=== PATIENT | male | born 1935 | race Caucasian/White ===

== ENCOUNTER → 2016-12-05 | Outpatient (CLI) | payer OTHER ==
[~2016-12-05] VITALS: Ht 175.3 cm; Wt 78.5 kg
[~2016-12-05] MED LIST: ACYCLOVIR 800800 MG PO; CARBIDOPA-LEVO1 EAC9 PO; CELEXA10 MG PO; COSOPT EYE DROPS5 ML OPHTHALMIC; DOXYCYCLINE 10100 MG PO; FLOMAX0.4 MG PO; LOTEMAX5 ML OPHTHALMIC; MULTIVITAMINS1 EAC7 PO; NEXIUM 40 MG CA40 M1 PO; TAMSULOSIN HCL0.4 M1 PO
--- NOTE | ~2016-12-05 | P ---
[facility] [place] [address] PROCEDURE REPORT Name: DALE CARVAJAL Room #: REG [facility]#: [id number] Admission: 12/05/16 Attend Phys: Laz Farfan MD Discharge: Date of : 36 Report #: [id number] THIS REPORT FOR: //name// CC: Scott Farfan DATE OF SERVICE: 12/05/2016 BRIEF HISTORY: The patient is an 81-year-old male who has a history of multiple colon adenomas, his lifetime count at this time is 16. PREOPERATIVE DIAGNOSIS: High risk screening colonoscopy due to history of multiple colon adenomas. POSTOPERATIVE DIAGNOSES: 1. Multiple colon polyps. 2. Diverticulosis coli. 3. Internal hemorrhoids. MEDICATIONS: Deep sedation with propofol per anesthesia. SPECIMEN: 1. Diminutive polyps times 2 at 50 cm. 2. Ascending colon polyp. 3. Hepatic flexure polyp. 4. Polyp at 60 cm. ESTIMATED BLOOD LOSS: 3 mL. PROCEDURE: Colonoscopy to cecum and terminal ileum with snare polypectomy and biopsy. FINDINGS: Prior to propofol sedation, procedure of colonoscopy was discussed with the patient as well as potential risks and its complications. He indicates he understands and desires to proceed. DESCRIPTION OF PROCEDURE: With the patient in left lateral decubitus position, digital examination was completed which revealed no abnormalities. Subsequently, the [employer] Now video colonoscope was introduced into the rectum, advanced under direct vision to the cecum. Done with minimal difficulty. The cecum was identified by the ileocecal valve and the appendiceal orifice. I was able to visualize the distal segment of the terminal ileum, which was inspected and noted to be unremarkable. At that point, the scope was slowly withdrawn and careful circumferential views obtained including retroflexing the scope in the ascending colon. As we withdrew the scope, the prep was noted to be good. [facility] [address] [place] [address] PROCEDURE REPORT Name: ALENADALE Elliott [id number] Admission: 12/05/16 Attend Phys: Laz Farfan MD Discharge: Date of : 36 Report #: [id number] mucosa was within normal limits, normal vascular pattern, normal light reflex. As we withdrew the scope, a diminutive polyp was seen in the proximal ascending colon and removed by biopsy. Scope was further withdrawn and another diminutive polyp was seen and removed by biopsy from the hepatic flexure. At 60 cm, a flat 8 x 8 mm polyp was seen and removed by cold snare polypectomy. At 50 cm, 2 diminutive polyps were seen and removed by biopsy. Scope was further withdrawn and a few diverticula were seen without evidence of diverticulitis. The scope was withdrawn in the rectum. Upon retroflexion, hemorrhoids were seen. No additional abnormalities were seen. Scope was withdrawn. The patient tolerated the procedure well. CONDITION OF THE PATIENT UPON DISCHARGE: Following procedure, the patient drowsy, aroused, conversant and will be discharged home when fully ambulatory. INSTRUCTIONS TO THE PATIENT AND FAMILY AT THE TIME OF DISCHARGE: The patient with history of 16 prior adenomas. Five polyps were identified and removed today. We will follow up on the path report, but due to his high number of polyps, would have him return in 2 years depending on his health status. 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 He will return to care of Dr. Scott Grimaldo and return to see me as needed. Last colonoscopy was about 2 years ago. Withdrawal time from the cecum was 16 minutes. <ELECTRONICALLY SIGNED> By: Laz Farfan MD 12/05/16 1100 1001 1036 Laz Farfan MD /nt
--- NOTE | ~2016-12-05 | S ---
[facility] [place] [facility] [place] [address] SURGICAL PATH RPT PROCEDURE Name: DALE CARVAJAL [id number] Admission: 12/05/16 Date of : 36 Discharge: Report #: [id number] Path Case #: [id number] PATHOLOGY REPORT COLLECTION DATE: 12/05/2016 RECEIVED DATE: 12/05/2016 SUBMITTING PHYS: Dr. Laz Farfan OTHER PHYS: Dr. Scott Grimaldo SPECIMEN(S) RECEIVED: A.Polyp at 50 cm B.Ascending colon polyp C.Hepatic flexure polyp D.Polyp at cecum * * * * * * * * * * * * FINAL DIAGNOSIS: A. Polyp, at 50 cm, endoscopic biopsy: - Tubular adenoma. - Negative for high-grade dysplasia. B. Polyp, ascending colon polyp, endoscopic biopsy: - Tubular adenoma. - Negative for high-grade dysplasia. C. Polyp, hepatic flexure, endoscopic biopsy: - Tubular adenoma. - Negative for high-grade dysplasia. D. Polyp, at 60 cm, endoscopic biopsy: - Tubular adenoma. - Negative for high-grade dysplasia. (IUV:mgr; 12/06/2016) PATHOLOGIST: Janine Rangel M.D. REPORT ELECTRONICALLY SIGNED BY: Janine Rangel M.D. DATE/TIME: 12/06/2016 18:47 * * * * * * * * * * * * GROSS PATHOLOGY: A. Received in formalin labeled "Dale Carvajal, polyp at 50 cm," are two segments of jones soft tissue measuring 0.6 x 0.4 x 0.3 cm in aggregate dimensions and ranging from 0.3 to 0.4 cm in maximum dimension. The specimen is submitted entirely in cassette A1. B. Received in formalin labeled "Dale Carvajal, ascending colon polyp," is a segment of jones soft tissue measuring 0.6 cm in maximum dimension. The specimen is submitted entirely in cassette B1. C. Received in formalin labeled "Dale Carvajal, hepatic flexure polyp," is a segment of jones soft tissue measuring 0.5 cm in maximum [facility] [place] [place] [address] SURGICAL PATH RPT PROCEDURE Name: DALE CARVAJAL Room #: REG [facility].#: [id number] Admission: 12/05/16 Date of : 36 Discharge: Report #: [id number] Path Case #: [id number] dimension. The specimen is submitted entirely in cassette C1. D. Received in formalin labeled "Dale Carvajal, polyp at 60 cm," is a segment of jones soft tissue measuring 0.9 cm in maximum dimension. The specimen is submitted entirely in cassette D1. (TSD; 12/05/2016) CLINICAL HISTORY: Pre-Op, diagnosis: History of polyps Post OP diagnosis: Diverticulosis, polyps INITIAL CPT CODE(S): A; 32105 B; 86713 C; 76940 D; 32615 Professional services performed by [facility] at [address] [place] [address] Technical services performed by [facility] at [address] [place] [address], [address], [place] [address]. [facility] [address] [place] [address] PHONE: [phone] DIRECTOR: Devin Fernandes M.D. * * * END OF REPORT * * *
== END | disposition home or self-care (01) ==
LOC: GI 07:23
DX: Z09 Encounter for follow-up examination after completed treatment for conditions other than malignant neoplasm (principal); D12.2 Benign neoplasm of ascending colon; D12.3 Benign neoplasm of transverse colon; D12.4 Benign neoplasm of descending colon; D12.5 Benign neoplasm of sigmoid colon; K57.30 Diverticulosis of large intestine without perforation or abscess without bleeding; K64.8 Other hemorrhoids; G20 Parkinson's disease; F32.89 Other specified depressive episodes; F41.8 Other specified anxiety disorders; Z87.891 Personal history of nicotine dependence; Z85.828 Personal history of other malignant neoplasm of skin; Z98.41 Cataract extraction status, right eye; Z98.42 Cataract extraction status, left eye; Z98.890 Other specified postprocedural states; Z88.2 Allergy status to sulfonamides
CPT/HCPCS: 62110; 62900

== ENCOUNTER 2016-12-22 11:41 | Emergency (ER) | payer OTHER ==
[~2016-12-22] VITALS: Ht 175.3 cm; Wt 79.4 kg
[2016-12-22] MEDS ORDERED: FLEXERIL PO (11:58)
[2016-12-22] MEDS ORDERED: IBUPROFEN 600600 M1 PO (12:22)
[2016-12-22] MEDS ORDERED: PREDNISONE 20 M20 MG PO (12:22)
[2016-12-22 12:40] VITALS: BP 163/94
[2016-12-23] MEDS ORDERED: NORCO 5-325 TA1 EACH PO (10:18)
== END 2016-12-22 12:52 | disposition home or self-care (01) ==
LOC: ER 11:41
DX: M54.42 Lumbago with sciatica, left side (principal); F32.9 Major depressive disorder, single episode, unspecified; G20 Parkinson's disease; Z90.49 Acquired absence of other specified parts of digestive tract; Z98.890 Other specified postprocedural states; Z87.891 Personal history of nicotine dependence; Z88.2 Allergy status to sulfonamides

== ENCOUNTER 2016-12-23 08:08 | Emergency (ER) | payer OTHER ==
[~2016-12-23] VITALS: Ht 175.3 cm; Wt 79.4 kg
[~2016-12-23 08:08] MED LIST changes: +FLEXERIL PO; +IBUPROFEN 600600 M1 PO; +PREDNISONE 20 M20 MG PO
[2016-12-23] MEDS ORDERED: NORCO 5-325 TA1 EACH PO (10:18)
[2016-12-23 10:47] VITALS: BP 182/72
== END 2016-12-23 10:46 | disposition home or self-care (01) ==
LOC: ER 08:08
DX: M54.32 Sciatica, left side (principal); G20 Parkinson's disease; F32.9 Major depressive disorder, single episode, unspecified; Z90.89 Acquired absence of other organs; Z98.890 Other specified postprocedural states; Z90.49 Acquired absence of other specified parts of digestive tract; Z85.828 Personal history of other malignant neoplasm of skin; Z88.2 Allergy status to sulfonamides; Z87.891 Personal history of nicotine dependence

== ENCOUNTER 2016-12-28 12:15 | Emergency (ER) | payer OTHER ==
[~2016-12-28] VITALS: Ht 175.3 cm; Wt 79.4 kg
[~2016-12-28 12:15] MED LIST changes: +NORCO 5-325 TA1 EACH PO
[2016-12-28] MEDS ORDERED: SENOKOT-S1 TA1 PO (13:45)
[2016-12-28] MEDS ORDERED: IBUPROFEN 600600 M1 PO (13:45)
[2016-12-28] MEDS ORDERED: HYDROCODONE-AP1 EAC6 PO (13:45)
[2016-12-28 14:07] VITALS: BP 152/71
== END 2016-12-28 14:09 | disposition home or self-care (01) ==
LOC: ER 12:15
DX: M54.32 Sciatica, left side (principal); F32.9 Major depressive disorder, single episode, unspecified; Z88.2 Allergy status to sulfonamides; Z87.891 Personal history of nicotine dependence

== ENCOUNTER 2017-01-13 21:10 | Emergency (ER) | payer OTHER ==
[~2017-01-13] VITALS: Ht 175.3 cm; Wt 79.4 kg
[~2017-01-13 21:10] MED LIST changes: +HYDROCODONE-AP1 EAC6 PO; +SENOKOT-S1 TA1 PO
[2017-01-13] MEDS ORDERED: PREDNISONE 20 M20 MG PO (22:01)
[2017-01-13 22:19] VITALS: BP 190/70
[2017-01-17] MEDS ORDERED: VALIUM5 MG PO (07:37)
[2017-01-17] MEDS ORDERED: MOBIC15 MG PO (07:37)
== END 2017-01-13 22:21 | disposition home or self-care (01) ==
LOC: ER 21:10
DX: K59.00 Constipation, unspecified (principal); M54.16 Radiculopathy, lumbar region; M54.41 Lumbago with sciatica, right side; F32.9 Major depressive disorder, single episode, unspecified; G20 Parkinson's disease; Z90.89 Acquired absence of other organs; Z90.49 Acquired absence of other specified parts of digestive tract; Z85.828 Personal history of other malignant neoplasm of skin; Z88.2 Allergy status to sulfonamides; Z87.891 Personal history of nicotine dependence

== ENCOUNTER → 2017-02-21 | Outpatient (CLI) | payer OTHER ==
[~2017-02-21] MED LIST changes: +MOBIC15 MG PO; +PREDNISONE 10 M10 MG PO; +VALIUM5 MG PO
== END ==
LOC: MRI 07:01
DX: M51.9 Unspecified thoracic, thoracolumbar and lumbosacral intervertebral disc disorder (principal); M47.817 Spondylosis without myelopathy or radiculopathy, lumbosacral region; R26.9 Unspecified abnormalities of gait and mobility; M62.81 Muscle weakness (generalized); M79.605 Pain in left leg; M25.552 Pain in left hip

== ENCOUNTER 2017-03-11 09:50 | Inpatient (IN) | payer OTHER ==
[2017-03-11] VITALS (7 sets, daily range): BP systolic 113–163; BP diastolic 64–93
[~2017-03-11] VITALS: Ht 175.3 cm; Wt 88.3 kg
--- NOTE | ~2017-03-11 | EKG ---
[address] [place] [address] ELECTROCARDIOGRAM REPORT Name: MAEVELUISDALE Room #: 359-P ADM IN M.R.#: [id number] Admission: 03/11/17 Attend Phys: Venkat Zhao DO Discharge: Date of : 36 Report #: [id number] THIS REPORT FOR: //name// [facility] ED Test Date: 2017-03-11 Test Time: 09:59:26 Pat Name: DALE CARVAJAL Department: Room: 359 Gender: M Inclusion Internship: [id number] : 1935 Requested By: Joseph Reed Order Number: [id number] MD: Luiz Johnson Measurements Intervals [place] Rate: 144 P: -51 [place]: 73 QRS: 21 QRSD: 102 T: -5 QT: 314 QTc: 486 Interpretive Statements Atrial flutter Borderline T abnormalities, inferior leads Compared to ECG 07/05/2015 07:27:22 T-wave abnormality now present Sinus bradycardia no longer present Atrial premature complex(es) no longer present Electronically Signed On 03-11-2017 22:37:28 BURGLAR ALARM OPERATOR by Luiz Johnson [email or web address] <ELECTRONICALLY SIGNED> By: Luiz Johnson MD 03/11/17 [phone] 0959 Luiz Johnson MD /EPI
--- NOTE | ~2017-03-11 | 2DMMODE ---
[facility] [address] [place] [address] 2 D/M-MODE ECHOCARDIOGRAM Name: ALENADALE AMALIA Room #: 359-P ADM IN M.R.#: [id number] Admission: 03/11/17 Attend Phys: Venkat Zhao, Discharge: Date of : 36 Date of Service: 03/11/17 1550 Report #: [id number] THIS REPORT FOR: //name// APPROVED REPORT Study performed: 03/11/2017 14:58:07 EXAM: Comprehensive 2D, Doppler, and color-flow Echocardiogram Patient Location: Bedside Room #: 359 Status: routine BSA: 2.04 HR: 72 bpm BP: 152/88 mmHg Other Information Study Quality: Good Indications Hx: Atrial Flutter 2D Dimensions RVDd: 30.85 mm LVEF(%): 56.38 (>50%) IVSd: 9.76 (7-11mm) LVOT Diam: 21.18 (18-24mm) LVDd: 55.23 mm PWd: 10.14 (7-11mm) Ascending Ao: 32.79 (22-36mm) LVDs: 38.75 (25-40mm) Aortic Root: 32.24 mm IVC: 31.00 mm Winn's LVEF: 56.38 % Volumes Left Atrial Volume (Systole) Single Plane 4CH: 81.94 mL Single Plane 2CH: 65.13 mL LA ESV Index: 37.00 mL/m2 Aortic Valve AoV Peak Max.: 0.94 m/s AO Peak Gr.: 3.84 mmHg LVOT Max P.05 mmHg LVOT Max V: 0.72 m/s ADRIÁN Vmax: 2.67 cm2 Mitral Valve E/A Ratio: 4.8 MV Decel. Time: 186.95 ms MV E Max Max.: 0.92 m/s [facility] [place] [address] 2 D/M-MODE ECHOCARDIOGRAM Name: DALE CARVAJAL Room #: 359-P [facility] IN .R.#: [id number] Admission: 03/11/17 Attend Phys: Venkat Zhao, Discharge: Date of : 36 Date of Service: 03/11/17 1550 Report #: [id number] MV A Max.: 0.19 m/s MV PHT: 54.22 ms IVRT: 59.98 ms Pulmonary Valve PV Peak Max.: 0.80 m/s PV Peak Gr.: 2.56 mmHg Pulmonary Vein P Vein S: 0.45 m/s P Vein A: 0.12 m/s P Vein D: 0.54 m/s P Vein A Dur.: 83.0 msec P Vein S/D Ratio: 0.83 Tricuspid Valve TR Peak Max.: 3.12 m/s RAP Estimate: 15.00 mmHg TR Peak Gr.: 39.00 mmHg PA Pressure: 54.00 mmHg Left Ventricle The left ventricle is normal size. There is normal left ventricular wall thickness. Left ventricular systolic function is mild-moderately decreased. LVEF 40-45%. The diastolic function is abnormal. Findings suggest the left atrial pressure is elevated. Right Ventricle The right ventricle is normal size. The right ventricular systolic function is normal. Atria Left atrium is dilated. Right atrium is dilated. Aortic Valve The aortic valve is mildly sclerotic No aortic regurgitation is present. There is no aortic valvular stenosis. Mitral Valve Mild mitral annular calcification. Moderate mitral regurgitation. No evidence of mitral valve stenosis. Tricuspid Valve The tricuspid valve is normal in structure. Moderate tricuspid regurgitation. Estimated PAP 50 mmHg. Pulmonic Valve The pulmonary valve is normal in structure. Trace pulmonic regurgitation. [facility] [place] [address] 2 D/M-MODE ECHOCARDIOGRAM Name: DALE CARVAJAL Room #: 359-P [facility] IN .R.#: [id number] Admission: 03/11/17 Attend Phys: Venkat Zhao, Discharge: Date of : 36 Date of Service: 03/11/17 1550 Report #: [id number] Great Vessels The aortic root is normal in size. IVC is dilated and collapses <50% with inspiration. Pericardium There is no pericardial effusion. <Conclusion> Left ventricular systolic function is mild-moderately decreased. LVEF 40-45%. Left atrium is dilated. The aortic valve is mildly sclerotic. No aortic valvular stenosis or insufficiency. Mild mitral annular calcification. Moderate mitral regurgitation. Pulmonary artery pressure of 50mmHg There is no pericardial effusion. <ELECTRONICALLY SIGNED> By: Stiven Chavis MD, FACC 03/11/17 1550 155 155 Stiven Chavis MD, FACC /INF
[~2017-03-11 09:50] MED LIST changes: +IBUPROFEN 800800 M1 PO
[2017-03-11] MEDS ORDERED: SENNA8.6 MG PO (10:23)
[2017-03-11 10:34] LABS: HEMATOCRIT 37.9 % (42.0-52.0); HEMOGLOBIN 12.5 gm/dL (14.0-18.0); MCH 30.4 pg (26.0-34.0); MCV 91.9 fL (80.0-100.0); RBC 4.13 mil/uL (4.50-6.00); RDW 15.2 % (10.5-14.5); WBC 4.9 thou/uL (4.0-11.0)
[2017-03-11 10:39] LABS: ANION GAP 5 mmol/L (7-16); BUN 21 mg/dL (7-18); CALCIUM 8.9 mg/dL (8.5-10.1); CHLORIDE 103 mmol/L (98-107); CO2 30 mmol/L (21-32); CREATININE 0.9 mg/dL (0.7-1.3); GLUCOSE 83 mg/dL (74-106); POTASSIUM 4.3 mmol/L (3.5-5.1); SODIUM 138 mmol/L (136-145)
[2017-03-11 10:47] LABS: MAGNESIUM 2.1 mg/dL (1.8-2.4); TROPONIN-I < 0.04 ng/mL (<0.06)
[2017-03-12 00:16] VITALS: BP 131/59
[2017-03-12 03:14] LABS: CALCIUM 8.4 mg/dL (8.5-10.1); CREATININE 0.8 mg/dL (0.7-1.3); POTASSIUM 3.7 mmol/L (3.5-5.1)
[2017-03-12 04:50] VITALS: BP 107/52
[2017-03-12 07:56] VITALS: BP 109/53
[2017-03-12] MEDS ORDERED: ELIQUIS5 MG PO (10:58)
[2017-03-12] MEDS ORDERED: CARDIZEM CD240 MG PO (10:58)
[2017-03-12] MEDS ORDERED: LASIX 40 MG TAB40 M2 PO (10:58)
[2017-03-12] MEDS ORDERED: POTASSIUM20 PO (10:59)
[2017-03-12 11:25] VITALS: BP 119/67
[2017-03-12] MEDS ORDERED: SINEMET 25-2501 EAC1 PO (16:26)
[2017-03-12] MEDS ORDERED: VALIUM5 MG PO (16:31)
[2017-03-12] MEDS ORDERED: MOBIC15 MG PO (16:31)
[2017-03-12] MEDS ORDERED: COSOPT OCUMETER10 ML OPHTHALMIC (16:33)
[2017-03-12] MEDS ORDERED: ALPHAGAN P5 ML OPHTHALMIC (16:34)
[2017-03-12 17:03] VITALS: BP 108/67
[2017-03-12 19:25] VITALS: BP 123/68
[2017-03-13 03:47] VITALS: BP 111/58
[2017-03-13 05:46] LABS: HEMATOCRIT 34.7 % (42.0-52.0); HEMOGLOBIN 11.6 gm/dL (14.0-18.0); MCH 30.7 pg (26.0-34.0); MCHC 33.5 g/dL (28.0-37.0); MCV 91.7 fL (80.0-100.0); RBC 3.79 mil/uL (4.50-6.00); RDW 15.3 % (10.5-14.5); WBC 3.8 thou/uL (4.0-11.0)
[2017-03-13 05:53] LABS: CALCIUM 8.8 mg/dL (8.5-10.1); CREATININE 0.9 mg/dL (0.7-1.3); POTASSIUM 3.9 mmol/L (3.5-5.1)
[2017-03-13 07:53] VITALS: BP 129/68
[2017-03-13] MEDS ORDERED: TORSEMIDE20 MG PO (11:08)
[2017-03-13 11:22] VITALS: BP 109/65
[2017-03-13 11:49] VITALS: BP 109/65
== END 2017-03-13 14:10 | disposition home or self-care (01) | DRG 308 ==
LOC: ER 09:50 → EROBS 11:06 → 3W 11:06 → ENTRNSPT 03-13 14:01 → EDTRNSPTSTS 03-13 14:06 → 3W 03-13 14:10
PROVIDERS: Emergency Medicine; Internal Medicine; Nurse Practitioner Family
DX: I48.92 Unspecified atrial flutter (principal); I50.23 Acute on chronic systolic (congestive) heart failure; G20 Parkinson's disease; M54.32 Sciatica, left side; R33.9 Retention of urine, unspecified; D64.9 Anemia, unspecified; N40.0 Benign prostatic hyperplasia without lower urinary tract symptoms; Z79.899 Other long term (current) drug therapy; Z88.2 Allergy status to sulfonamides; Z87.891 Personal history of nicotine dependence
CPT/HCPCS: 10779

== ENCOUNTER 2018-01-17 17:43 | Emergency (ER) | payer OTHER ==
[~2018-01-17] VITALS: Ht 175.3 cm; Wt 77.1 kg
--- NOTE | ~2018-01-17 | EKG ---
[address] [address] ELECTROCARDIOGRAM REPORT Name: MAEVELUISDALE Room #: DEP Keith#: [id number] Admission: 01/17/18 Attend Phys: Discharge: 01/17/18 Date of : 36 Report #: [id number] THIS REPORT FOR: //name// [facility] ED Test Date: 2018-01-17 Test Time: 18:28:21 Pat Name: DALE CARVAJAL Department: Room: Gender: Employment Coach: CATA : 1935 Requested By: Joseph Reed Order Number: [id number] MD: Luiz Johnson Measurements Intervals [place] Rate: 91 P: [place]: QRS: 59 QRSD: 107 T: -3 QT: 418 QTc: 515 Interpretive Statements Atrial flutter Compared to ECG 03/11/2017 09:59:26 T-wave abnormality no longer present Electronically Signed On 01-19-2018 17:30:54 CDT by Luiz Johnson [email or web address] <ELECTRONICALLY SIGNED> By: Luiz Johnson MD 01/19/18 1730 D: 09/1827 27 Luiz Johnson MD /TANIA
[~2018-01-17 17:43] MED LIST changes: +ALPHAGAN P5 ML OPHTHALMIC; +CARDIZEM CD240 MG PO; +COSOPT OCUMETER10 ML OPHTHALMIC; +ELIQUIS5 MG PO; +LASIX 40 MG TAB40 M2 PO; +POTASSIUM20 PO; +SENNA8.6 MG PO; +SINEMET 25-2501 EAC1 PO; +TORSEMIDE20 MG PO
[2018-01-17 18:28] LABS: ABSOLUTE NEUTROPHILS 7.5 thou/uL (1.4-8.2); BASOPHILS 0.2 % (0.0-2.0); EOSINOPHILS 0.7 % (0.0-3.0); HEMATOCRIT 37.8 % (42.0-52.0); HEMOGLOBIN 13.3 gm/dL (14.0-18.0); MCH 31.6 pg (26.0-34.0); MCHC 35.1 g/dL (28.0-37.0); MCV 89.8 fL (80.0-100.0); MONOCYTES 4.8 % (1.0-8.0); PLATELET COUNT 132 thou/uL (150-400); POLYS 89.3 % (36.0-66.0); RBC 4.21 mil/uL (4.50-6.00); RDW 14.2 % (10.5-14.5); WBC 8.4 thou/uL (4.0-11.0)
[2018-01-17 18:40] LABS: ANION GAP 8 mmol/L (7-16); BUN 24 mg/dL (7-18); CALCIUM 9.1 mg/dL (8.5-10.1); CHLORIDE 102 mmol/L (98-107); CO2 27 mmol/L (21-32); CREATININE 1.1 mg/dL (0.7-1.3); GLUCOSE 132 mg/dL (74-106); POTASSIUM 4.1 mmol/L (3.5-5.1); SODIUM 137 mmol/L (136-145)
[2018-01-17 18:48] LABS: ALBUMIN 3.7 g/dL (3.4-5.0); MAGNESIUM 2.1 mg/dL (1.8-2.4); SGOT 15 U/L (15-37); SGPT 12 U/L (30-65); TOTAL BILIRUBIN 0.7 mg/dL (<0.1-1.0); TOTAL PROTEIN 6.6 g/dL (6.4-8.2); TROPONIN-I <0.06 ng/mL (<0.06)
[2018-01-17 19:48] LABS: URINE BILIRUBIN NEGATIVE (Negative); URINE BLOOD NEGATIVE (Negative); URINE CLARITY CLEAR; URINE COLOR YELLOW; URINE GLUCOSE-RANDOM* NEGATIVE (Negative); URINE KETONES TRACE (Negative); URINE LEUKOCYTES-REFLEX NEGATIVE (Negative); URINE NITRITE-REFLEX NEGATIVE (Negative); URINE PROTEIN (DIPSTICK) TRACE (Negative)
[2018-01-17 20:31] VITALS: BP 104/65
== END 2018-01-17 20:33 | disposition home or self-care (01) ==
LOC: ER 17:43
PROVIDERS: Emergency Medicine
DX: R25.1 Tremor, unspecified (principal); G20 Parkinson's disease; Z88.2 Allergy status to sulfonamides

== ENCOUNTER 2018-06-12 05:16 | Day surgery (SDC) | payer OTHER ==
[~2018-06-12] VITALS: Ht 175.3 cm; Wt 76.2 kg
[~2018-06-12 05:16] MED LIST changes: +BRIMONIDINE TART5 ML OPHTHALMIC; +COSOPT OCUMETER10 M1 OPHTHALMIC; +PREDNISOLONE SO10 ML OPHTHALMIC; +SELEGILINE HCL5 M1 PO
[2018-06-12 08:37] VITALS: BP 153/59
[2018-06-12 08:53] LABS: CALCIUM 9.5 mg/dL (8.5-10.1); CREATININE 0.8 mg/dL (0.7-1.3); POTASSIUM 4.4 mmol/L (3.5-5.1)
[2018-06-12 10:34] VITALS: BP 153/59
--- NOTE | 2018-06-12 12:18 | H ---
[facility] [place] [address] HISTORY AND PHYSICAL Name: DALE CARVAJAL Room #: DEP [facility] M.R.#: [id number] Admission: 06/12/18 Attend Phys: Rodrigo Schwartz MD Discharge: 06/12/18 Date of : 36 Report #: [id number] THIS REPORT FOR: //name// CC: Scott Schwartz CHIEF COMPLAINT: Persistent left anterior vocal cord lesion. HISTORY OF PRESENT ILLNESS: The patient is an 83-year-old gentleman with a longstanding history of known vocal cord polyp. 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 The patient underwent removal of those lesions in 2013 and postoperative voice therapy. He returned in June 2015 and was noted at that time to have a small left anterior vocal fold cyst and then recommended at that time to consider removal. He had returned in April 2018, findings noted on the examination at that time included a raspy voice, thick mucus in the throat and again on examination, we did visualize a cyst in the left anterior true vocal cords, remainder of the area appearing unremarkable. Upon wishes to have this removed at this time, I discussed the options for treatment including surgical removal that he understands this may not be sufficient to correct all of his voicing concerns. He also had cardiology clearance from Dr. Chavis prior to the procedure. The plan will be for micro direct laryngoscopy with biopsy. ALLERGIES TO MEDICATION: SULFA. MEDICATIONS ON ADMISSION: This is a fairly extensive list, acyclovir 800 mg once a day, Azopt eyedrops, carbidopa/levodopa 100 mg daily, Cartia XT 240 extended release daily, Eliquis 5 mg a day, potassium chloride extended release 20 mEq a day, selegiline 5 mg capsule once a day, torsemide 20 mg once a day. PAST MEDICAL AND SURGICAL HISTORY: Notable for gastroesophageal reflux disease, glaucoma, hearing loss, hypertension, cardiovascular disease. FAMILY HISTORY: Not notable for any particular problems. REVIEW OF SYSTEMS: He has noted he is a previous tobacco abuser. PHYSICAL EXAMINATION: VITAL SIGNS: Height of 5 feet 9 inches, weight 180 pounds. HEENT: As outlined above. Oral cavity and pharynx otherwise unremarkable. NECK: Normal to palpation. Larynx is as noted above. ASSESSMENT: History of left laryngeal lesion. [address] [address] HISTORY AND PHYSICAL Name: DALE CARVAJAL Room #: DEP [facility].#: [id number] Admission: 06/12/18 Attend Phys: Rodrigo Schwartz MD Discharge: 06/12/18 Date of : 36 Report #: [id number] Plan will be for micro direct laryngoscopy. <ELECTRONICALLY SIGNED> By: Rodrigo Schwartz MD 06/12/18 1218 0854 0928 Rodrigo Schwartz MD /sundeep
--- NOTE | 2018-06-12 12:18 | O ---
[facility] [place] [address] OPERATIVE REPORT Name: DALE CARVAJAL Room #: DEP [facility] M.R.#: [id number] Admission: 06/12/18 Attend Phys: Rodrigo Schwartz MD Discharge: 06/12/18 Date of : 36 Report #: [id number] THIS REPORT FOR: //name// CC: Scott Schwartz DATE OF SERVICE: 06/12/2018 PREOPERATIVE DIAGNOSIS: Left vocal cord lesion. POSTOPERATIVE DIAGNOSIS: Left anterior vocal cord cyst, contact irritation right true vocal cord. ANESTHESIA: General endotracheal. INDICATIONS: See H and P. FINDINGS: Firm cystic lesion was located on the medial ventral surface of the anterior left vocal cord near the commissure. There was contact inflammation and leukoplakia on the right anterior vocal cord, however, this was easily suctioned away and was not mucosal or submucosal in nature. TECHNIQUE: After obtaining consent, he was brought to the operating suite, appropriate time out was performed. General oral endotracheal anesthesia was obtained, the bed was turned 90 degrees, placed in a slight sniffing position with a small shoulder roll. Palpation of the neck was unremarkable. A mouth guard was placed over the upper dentition and left in place during the case. At the end of the case, the mouth guard was removed. Dentition was intact. The Dedo-laryngoscope was advanced into the oral cavity to the oropharynx into the hypopharynx. Base of tongue appeared unremarkable. The epiglottis and vallecula appeared unremarkable. The scope was advanced along the endotracheal tube to the anterior glottis where a suspension device was applied after adequate visualization of the false and true cords was obtained. He has a very anterior larynx, so visualization was somewhat technically more demanding. After putting in suspension, the operating scope was brought into the field and used for the majority of the case. Pre-biopsy photos were obtained. The cyst was very firm, required grasping with forceps to medialize. Using right curved scissors, a mucosal cut was made on the attachment to the vocal cord ligament and excised in a posterior to anterior direction and removed in toto. The anterior aspect of this was nearly against the commissure. Upon removal, hemostasis was obtained with the use of 0.5 x 0.5 cottonoid with adrenaline, left on for a couple of minutes. Upon removal, there was no active bleeding in that area noted. There was no vocal cord swelling noted. This reduced the tightness in the commissure back to normal. I then was able to suction off the excretion over the right vocal cord, which was noninvasive in nature and that [address] [address] OPERATIVE REPORT Name: DALE CARVAJAL Room #: DEP [facility] M.R.#: [id number] Admission: 06/12/18 Attend Phys: Rodrigo Schwartz MD Discharge: 06/12/18 Date of : 36 Report #: [id number] representing contact irritation from the previous cyst. Post-biopsy photos were obtained. He was then turned back over to Anesthesia where he was lightened and extubated and taken to recovery room in stable condition. Estimated blood loss was minimal. <ELECTRONICALLY SIGNED> By: Rodrigo Schwartz MD 06/12/18 1218 1023 1118 Rodrigo Schwartz MD /nt
--- NOTE | 2018-06-16 09:11 | PATH ---
[facility] [address] [place] [address] PATHOLOGY RPT PROCEDURE Name: DALE CARVAJAL Room #: DEP [facility] M.R.#: [id number] Admission: 06/12/18 Date of : 36 Discharge: 06/12/18 Report #: [id number] Path Case #: [id number] [facility] Accession Number: [id number] . 01 Material submitted: . LEFT VOCAL LESION . 01 Clinical history: . Vocal cord lesion . 02 Diagnosis: Vocal cord "left vocal cord lesion", biopsy: - Benign cyst lined by columnar to ciliated columnar epithelium. - There is no evidence of atypia or malignancy. See comment. (SHA:maday; 06/15/2018) QMS/06/15/2018 . 02 Comment: This case is also reviewed by Dr. Nicholson . 02 Electronically signed: . Yuriy Crawford MD, Pathologist NPI- [id number] . 01 Gross description: . Received in formalin labeled "Dale Carvajal, left vocal cord lesion," is mucoid material containing small fragments of jones membranous tissue, measuring 1.2 x 0.9 x 0.2 cm in aggregate dimensions. The specimen is filtered and submitted entirely in cassette A1. (TSD; 06/12/2018) TOB/TOB . 02 Pathologist provided ICD-10: J38.3 . 02 CPT . 283679 Specimen Comment: A courtesy copy of this report has been sent to Specimen Comment: [phone], , . Specimen Comment: Report sent to ,DR FLOYD / DR GENTILE Specimen Comment: A duplicate report has been generated due to demographic updates. Performed at: [address] [id number] MD Pato Hawkins MD Phone: [phone] Performed at: [address] [address] PATHOLOGY RPT PROCEDURE Name: DALE CARVAJAL Room #: DEP [facility] M.R.#: [id number] Admission: 06/12/18 Date of : 36 Discharge: 06/12/18 Report #: [id number] Path Case #: [id number] [address] [id number] MD Janine Rangel MD Phone: [phone]
== END 2018-06-12 11:30 | disposition home or self-care (01) ==
LOC: OR 05:16 → TBA 05:16 → OR 08:42
PROVIDERS: Otolaryngology
DX: J38.3 Other diseases of vocal cords (principal); I11.0 Hypertensive heart disease with heart failure; I50.9 Heart failure, unspecified; K21.9 Gastro-esophageal reflux disease without esophagitis; G20 Parkinson's disease; I48.91 Unspecified atrial fibrillation; Z85.828 Personal history of other malignant neoplasm of skin; Z79.899 Other long term (current) drug therapy; Z79.01 Long term (current) use of anticoagulants; Z88.2 Allergy status to sulfonamides; Z87.891 Personal history of nicotine dependence; Z98.890 Other specified postprocedural states; Z90.49 Acquired absence of other specified parts of digestive tract
CPT/HCPCS: 50010; 50101; 62110; 62900; 70005

== ENCOUNTER → 2018-07-23 | Outpatient (CLI) | payer OTHER | LOC: RAD 09:59 → SPEECH 10:54 → RAD 10:54 | DX: R13.12 Dysphagia, oropharyngeal phase (principal) ==

== ENCOUNTER → 2018-12-24 | Outpatient (CLI) | payer OTHER ==
[~2018-12-24] VITALS: Ht 175.3 cm; Wt 74.8 kg
[~2018-12-24] MED LIST changes: +TYLENOL325 MG PO
--- NOTE | ~2018-12-24 | P ---
[facility] [place] [address] PROCEDURE REPORT Name: DALE CARVAJAL Room #: REG [facility].#: [id number] Admission: 12/24/18 Attend Phys: Laz Farfan MD Discharge: Date of : 36 Report #: [id number] THIS REPORT FOR: //name// CC: Scott Farfan OUTPATIENT COLONOSCOPY REPORT BRIEF HISTORY: The patient is an 83-year-old male with a history of multiple colon adenomas. Prior to this exam, he has had a lifetime count of 21 adenomas. He presents for high-risk screening colonoscopy due to his history of multiple colonic adenomas. POSTOPERATIVE DIAGNOSIS: Internal hemorrhoids. MEDICATIONS: Deep sedation with propofol per anesthesia. SPECIMEN: None. ESTIMATED BLOOD LOSS: None. PROCEDURE: Colonoscopy to cecum and terminal ileum. FINDINGS: Prior to propofol sedation, procedure of colonoscopy discussed with the patient as well as potential risks and its complications. He indicates he understands and desires to proceed. DESCRIPTION OF PROCEDURE: With the patient in left lateral decubitus position, digital examination was completed, which revealed no abnormalities. Subsequently, the Olympus video colonoscope was introduced in the rectum, advanced under direct vision to the cecum. Done with minimal difficulty. Cecum was identified by the ileocecal valve and the appendiceal orifice. I was able to visualize the distal segment of the terminal ileum, which was inspected and noted to be unremarkable. At that point, the scope was slowly withdrawn and careful circumferential views were obtained. Upon slow withdrawal of the scope, the prep was noted to be good. The mucosa was within normal limits, normal vascular pattern, normal light reflex. He has a diffusely dilated colon, consistent with chronic constipation. No obstructions were seen. Mucosa was normal throughout. I did not find evidence of neoplastic disease. No polyps were seen. Other than a diffusely dilated colon, no other abnormalities were seen until the rectum was reached. The rectum on end view was unremarkable. Upon retroflexion, moderate internal hemorrhoids were seen without stigmata of bleeding. Scope was withdrawn. The patient tolerated the procedure well. CONDITION OF THE PATIENT UPON DISCHARGE: Following the procedure, the patient was drowsy, arousable, conversant and will be discharged home when fully [facility] [address] [place] [address] PROCEDURE REPORT Name: DALE CARVAJAL Room #: REG [facility].#: [id number] Admission: 12/24/18 Attend Phys: Laz Farfan MD Discharge: Date of : 36 Report #: [id number] ambulatory. INSTRUCTIONS TO THE PATIENT AND FAMILY AT THE TIME OF DISCHARGE: No neoplastic lesions were seen today. He has had chronic constipation and has had success with Linzess. He should continue to use Linzess. He is to return to see me in followup if he continues to have difficulty. The patient's lifetime adenoma count is at 21. We discussed with the patient the role of genetic counseling and potential genetic testing due to his high adenoma count. In addition, at this point in life, he is likely to achieve little benefit from continued routine screening colonoscopy. We will discuss further with the patient. By: 1028 2244 Laz Farfan MD /nt
== END | disposition home or self-care (01) ==
LOC: GI 08:40
DX: Z12.11 Encounter for screening for malignant neoplasm of colon (principal); Z86.010 Personal history of colon polyps; K64.8 Other hemorrhoids; I48.91 Unspecified atrial fibrillation; I48.92 Unspecified atrial flutter; I50.9 Heart failure, unspecified; G20 Parkinson's disease; Z85.828 Personal history of other malignant neoplasm of skin; Z79.01 Long term (current) use of anticoagulants; Z87.891 Personal history of nicotine dependence; Z90.49 Acquired absence of other specified parts of digestive tract; Z98.890 Other specified postprocedural states; Z79.899 Other long term (current) drug therapy; Z88.2 Allergy status to sulfonamides
CPT/HCPCS: G0105; 62110; 62900

== ENCOUNTER → 2019-10-15 | Outpatient (CLI) | payer OTHER | LOC: SJCVC 14:05 | PROVIDERS: ATTEND Internal Medicine | DX: I48.3 Typical atrial flutter (principal); I50.32 Chronic diastolic (congestive) heart failure; E78.5 Hyperlipidemia, unspecified; Z79.01 Long term (current) use of anticoagulants; Z79.899 Other long term (current) drug therapy; Z87.891 Personal history of nicotine dependence ==

== ENCOUNTER 2020-01-08 18:28 | Emergency (ER) | payer OTHER ==
[~2020-01-08] VITALS: Ht 175.3 cm; Wt 77.1 kg
[2020-01-08] MEDS ORDERED: LINZESS72 MCG PO (18:45)
[2020-01-08] MEDS ORDERED: AMANTADINE100 M1 PO (18:46)
[2020-01-08 21:40] VITALS: BP 168/79
== END 2020-01-08 21:40 ==
LOC: ER 18:28
DX: K59.00 Constipation, unspecified (principal); I50.9 Heart failure, unspecified; I48.91 Unspecified atrial fibrillation; Z90.49 Acquired absence of other specified parts of digestive tract; Z79.899 Other long term (current) drug therapy; Z87.891 Personal history of nicotine dependence; Z88.2 Allergy status to sulfonamides

== ENCOUNTER 2020-02-12 16:24 | Inpatient (IN) | payer OTHER ==
[~2020-02-12] VITALS: Ht 175.3 cm; Wt 78.0 kg
[~2020-02-12 16:24] MED LIST changes: +AMANTADINE100 M1 PO; +LINZESS72 MCG PO
[2020-02-12 16:29] VITALS: BP 137/45
[2020-02-12 17:29] LABS: ABSOLUTE NEUTROPHILS 4.1 thou/uL (1.4-8.2); BASOPHILS 0.4 % (0.0-2.0); EOSINOPHILS 0.5 % (0.0-3.0); HEMOGLOBIN 11.6 gm/dL (14.0-18.0); LYMPHOCYTES 6.8 % (24.0-44.0); MCH 29.2 pg (26.0-34.0); MCHC 33.3 g/dL (28.0-37.0); MCV 87.7 fL (80.0-100.0); MONOCYTES 4.8 % (1.0-8.0); PLATELET COUNT 132 thou/uL (150-400); POLYS 87.5 % (36.0-66.0); RBC 3.99 mil/uL (4.50-6.00); RDW 15.2 % (10.5-14.5); WBC 4.7 thou/uL (4.0-11.0)
[2020-02-12 17:47] LABS: ANION GAP 9 mmol/L (7-16); BUN 24 mg/dL (7-18); CALCIUM 8.7 mg/dL (8.5-10.1); CHLORIDE 99 mmol/L (98-107); CO2 24 mmol/L (21-32); CREATININE 1.2 mg/dL (0.7-1.3); GLUCOSE 133 mg/dL (74-106); POTASSIUM 4.3 mmol/L (3.5-5.1); SODIUM 132 mmol/L (136-145)
[2020-02-12 17:53] LABS: ALBUMIN 3.1 g/dL (3.4-5.0); DIRECT BILIRUBIN 0.2 mg/dL (<0.1-0.2); SGOT 17 U/L (15-37); TOTAL BILIRUBIN 0.7 mg/dL (0.2-1.0); TOTAL PROTEIN 6.5 g/dL (6.4-8.2)
[2020-02-12 18:02] LABS: SGPT < 6 U/L (30-65)
[2020-02-12 18:05] LABS: URINE BILIRUBIN NEGATIVE (Negative); URINE BLOOD NEGATIVE (Negative); URINE CLARITY CLEAR; URINE COLOR YELLOW; URINE GLUCOSE-RANDOM* NEGATIVE (Negative); URINE KETONES TRACE (Negative); URINE LEUKOCYTES-REFLEX NEGATIVE (Negative); URINE NITRITE-REFLEX NEGATIVE (Negative); URINE PROTEIN (DIPSTICK) NEGATIVE (Negative)
[2020-02-12 19:26] VITALS: BP 131/51
--- NOTE | 2020-02-12 19:30 | NUR ---
ATTEMPTING TO GIVE REPORT TO 3W, REPORTS ROOM NOT CLEAN.
[2020-02-12 21:32] VITALS: BP 128/51
--- NOTE | 2020-02-13 00:52 | NUR ---
PT ADMITTED FROM HOME THROUGH ED. PT LIVES WITH HIS STEP SON AND STEP DAUGHTER AND GREAT GRANDSON. PTS GRANDSON IS IN QUARANTINE BECAUSE ON OF HIS CLASSMATES TESTED + COVID. PT HAS BEEN A FOR A YEAR. PT PRESENTED WITH FEVER COUGH SOA AND DECREASED TASTE. PTS SON JOCE AND STEP SON KARMEN CALLED RE PTS STATUS. PT IS AOX4. STEADY GAIT. PT HAS BEEN A FOR A YEAR. LUNGS DIMINSHED, O2 PER NC 2L. IV LASIX GIVEN. BLOOD CULTURES OBTAINED AND THEN ANTIBIOTIC GIVEN. PT WEARS GLASSES BUT LEFT THEM AT HOME ALONG WITH HIS PARTIAL TEETH PLATE. 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 PT REPORTED INCREASE IN BLE TREMORS AND REQUESTED PROVIDER BE CONTACTED. NO NEW ORDERS AT THIS TIME. PT PROVIDED HS SNACK.
--- NOTE | 2020-02-13 03:50 | NUR ---
PT REPORTED GAS, REQUESTED SPRITE AND PROVIDED. CONTINUES TO REPORT DISCOMFORT REQUESTING GASX MEDICATION, STATED HE TAKES BEANO AT HOME. PROVIDER CONTACTED.
[2020-02-13 04:15] VITALS: BP 167/63
--- NOTE | 2020-02-13 04:44 | NUR ---
PT COVID PCR NEG. PROVIDER AND PROTECTIVE SIGNAL REPAIRER HELPER AND CHARGE NURSE NOTIFIED. PTS SON NOTIFIED PER PT REQUEST.
[2020-02-13 06:07] LABS: HEMATOCRIT 37.1 % (42.0-52.0); HEMOGLOBIN 12.3 gm/dL (14.0-18.0); MCH 29.2 pg (26.0-34.0); MCHC 33.1 g/dL (28.0-37.0); MCV 88.2 fL (80.0-100.0); RBC 4.2 mil/uL (4.50-6.00); RDW 14.8 % (10.5-14.5); WBC 5.5 thou/uL (4.0-11.0)
[2020-02-13 06:30] LABS: CALCIUM 8.8 mg/dL (8.5-10.1); CREATININE 1.1 mg/dL (0.7-1.3); POTASSIUM 4.2 mmol/L (3.5-5.1)
[2020-02-13 08:26] VITALS: BP 135/58
[2020-02-13 16:44] VITALS: BP 131/53
--- NOTE | 2020-02-13 16:57 | NUR ---
PT CARE ASSUMED AT 0700, PT ALERT AND ORIENTED X4, DENIES ANY PAIN, NAUSEA AND VOMITTING. PT OSXYGEN DECREASED DOWN TO 1L, NO SGNS OF DISTRESS NOR SOB NOTED. UP AD TERENCE TO BATHROOM. DENIES ANY NEEDS AT THE MOMENT. 1630 PT IS OFF ISOLATIONS, WAITING FOR A BED/SURG BED. WILL CONTINUE TO MONITOR.
[2020-02-13 18:53] VITALS: BP 141/42
--- NOTE | 2020-02-13 21:08 | NUR ---
PT WATCHING TV IN BED, SITTING ON EDGE OF BED. CONTINUES WITH STEADY GAIT. PT TALKED WITH SEVERAL OF HIS CHILDREN ON THE PHONE. O2 PER NC 1L. LUNGS WITH WHEEZES. IV ANTIBIOTICS CONTINUE. PT REQUESTED TYELENOL GASX AND PRUNE JUICE AND PROVIDED. PT DID HAVE BM ON DAY SHIFT. PT ALSO PROVIDED HS SNACK. CLARIFIED WITH INFECTION NURSE, PT OK TO TRANSFER, OFF ISOLATION.
[2020-02-14 04:15] VITALS: BP 126/53
[2020-02-14 05:42] LABS: ABSOLUTE NEUTROPHILS 3.3 thou/uL (1.4-8.2); BASOPHILS 0.4 % (0.0-2.0); EOSINOPHILS 1.2 % (0.0-3.0); HEMATOCRIT 33.5 % (42.0-52.0); HEMOGLOBIN 11.3 gm/dL (14.0-18.0); LYMPHOCYTES 5.4 % (24.0-44.0); MCH 29.5 pg (26.0-34.0); MCHC 33.7 g/dL (28.0-37.0); MCV 87.4 fL (80.0-100.0); PLATELET COUNT 135 thou/uL (150-400); RBC 3.83 mil/uL (4.50-6.00); WBC 3.8 thou/uL (4.0-11.0)
--- NOTE | 2020-02-14 05:54 | NUR ---
LATE ENTRY PT TRANSFERRED FROM 3W TO 456. REPORT PROVIDED TO RN. PT HAD ALL OF HIS BELONGINGS RETURNED TO HIM. PT STATED HE WILL NOTIFY SON OF ROOM CHANGE IN THE AM.
--- NOTE | 2020-02-14 06:30 | NUR ---
ASSUMED CARE OF PT FROM 3W AT 0520HRS. PT IS AOX4 AND LETS NEEDS BE KNOWN. O2 CONTINUED AT 1L VIA NC. SON INFORMED ABOUT TRANSFER TO NEW ROOM. PT IN STABLE CONDITION AND CURRENTLY RESTING.
--- NOTE | 2020-02-14 13:30 | NUR ---
PT ADMITTED RELATED TO R/O COVID URI FEVER. CM REVIEWED CHART AND SPOKE WITH CARE TEAM. CM CALLED AND SPOKE WITH PT OVER THE PHONE THIS AM. PT INDICATED SHE LIVES IN A HOUSE WITH HIS SON AND CHART INDICATES WITH DTR AND GREAT GRAND SON. HE INDICATED NO STEPS TO ENTER AND NO STEPS HE USES INSIDE. 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 PT INDICATED HE HAS A FWW THAT HAD BELONGED TO HIS AND A CANE FOR USE WITH MOBILITY HOSE FINISHER. PT INDICATED NO HH OR SNF HX. PT INDICATED HIS PCP IS DR. PEDRO GENTILE. PT INDICATED NO HOME O2 OR NEBULIZER AT HOME HOSE FINISHER. PT PLANS TO RETURN HOME ONCE MEDICALLY STABLE. CM TO FOLLOW INDICATED WITH DC PLANNING.
--- NOTE | 2020-02-14 17:36 | NUR ---
ASSUMED CARE OF PATIENT AT SHIFT CHANGE. ASSESSMENT CHARTED, MEDS GIVEN PER MAR. VSS. PATIENT IS A&OX4 AND HAS A STEADY GAIT. C/O LEG CRAMPS; MILD PAIN AND DISCOMFORT, RELIEVED BY TYLENOL. ON IV ABX; IV ON R FA INRACT REINFORCED BY PAZ CORTES. SON CURRENTLY AT BEDSIDE; PATIENT VOICES CONCERN ON WANTING TO GO HOME. PLAN IS TO POSSIBLY D/C IN AM IF MEDICALLY STABLE. AFEBRILE, NO S/S OF INFECTION; EXPIRATORY WHEEZING NOTED. ON 1 L OF O2 AND STABLE. PATIENT CALLS OUT NEEDED. WILL CONTINUE TO MONITOR
[2020-02-14 19:27] VITALS: BP 131/50
--- NOTE | 2020-02-14 19:32 | NUR ---
THIS RN ADMENDED NURSING ASSESSMENT DONE BY KIM/WATER TREATMENT SPECIALIST, AND I AGREE WITH NURSING NOTE DONE BY KIM/WATER TREATMENT SPECIALIST.
[2020-02-14 22:02] VITALS: BP 131/50
--- NOTE | 2020-02-15 01:01 | NUR ---
PT AOX4. PT REPORTS 1/10 PAIN IN ABDOMEN DUE TO REPORTS OF GAS PAIN. PT RECEIVING PRN PO APAP Q4HR. PT DENIES SOB WHILE ON 1L O2 VIA NC. PT TOLERATING PO INTAKE OF FLUIDS AND HEART HEALTHY DIET WITHOUT ISSUE. PT RESTING IN BED THROUGHOUT SHIFT, INTERMITTENTLY SITTING ON THE SIDE OF THE BED INDEPENDENTLY. FREQUENT REPOSITIONING ENCOURAGED, PT NOTED TO SHIFT INDEPENDENTLY WHILE IN BED. PT ENCOURAGED TO NOTIFY STAFF FOR ALL NEEDS. CALL LIGHT WITHIN REACH, BED ALARM ON, BED IN LOWEST POSITION, FREQUENT REPOSITIONING ENCOURAGED.
[2020-02-15 05:59] LABS: ALBUMIN 2.8 g/dL (3.4-5.0); CALCIUM 8.9 mg/dL (8.5-10.1); CREATININE 1.5 mg/dL (0.7-1.3)
[2020-02-15 07:25] VITALS: BP 123/49
[2020-02-15] MEDS ORDERED: CEFUROXIME500 MG PO (10:13)
[2020-02-15 11:01] VITALS: BP 123/49
--- NOTE | 2020-02-15 11:03 | NUR ---
CARE TEAM INDICATED THAT PT IS MEDICALLY STABLE TO DISCHARGE HOME THIS DAY. HH WAS RECOMMENDED PT, OT, NURSING. CM SPOKE WITH PT AND HE INDICATED NO PREFERENCE FOR PROVIDER. REFERRAL SENT TO [facility]. PT HAD BEEN ON 1L O2 THIS AM BUT WAS TAKEN OFF AND NURSE CHECKED SATS A NUMBER OF TIMES AND PT WAS IN MAINTAINING HIS O2 SATS AT OR NEAR 100 AT REST AND WITH ACTIVITY. PT AND CARE TEAM INDICATED THAT HOME O2 WASN'S NEEDED AT DISCHARGE. PT'S FAMILY TO PROVIDE TRANSPORT HOME. CM AWAITING RESPONSE FROM [facility].
[2020-02-15 12:09] VITALS: BP 123/49
--- NOTE | 2020-02-15 12:17 | NUR ---
ASSUMED CARE OF PATIENT THIS AM. ASSESSMENT CHARTED. MEDICATION ADMINISTERED PER JUN. VSS; OXYGEN SATURATION LEVEL IS 100% ON RA. PATIENT DENIES ANY SOA. IV ABX INFUSED ON R W NO ISSUES. PROVIDER CLEARED PATIENT TO GO HOME W HH. PATIENT CONTINUES TO AMBULATE INDEPENDENTLY W NO ISSUES. PATIENT DENIES ANY NEEDS OTHER THAN WANTING TO DISCHARGE. WILL CONTINUE TO MONITOR AND WORK ON PATIENTS DISCHARGE.
[2020-02-15 12:21] VITALS: BP 123/49
--- NOTE | 2020-02-15 13:25 | NUR ---
PATIENT LEFT UNIT AT APPROX. 1250 TRANSPORTED BY RN W LAWANDA; NO ISSUES OR COMPLICATIONS
[2020-02-15 14:05] VITALS: BP 123/49
[2020-02-15 15:16] VITALS: BP 123/49
--- NOTE | 2020-02-15 15:18 | NUR ---
FINAL DC ORDERS FAXED AND CONFIRMED WITH [facility] AND THEY CAN ACCEPT FOR HOME SERVICES. COVID ANTIGEN AND PCR DISCUSSED.
== END 2020-02-15 14:09 | disposition home health service (06) | DRG 291 ==
LOC: ER 16:24 → 3W 18:41 → EROBS 18:41 → 4W 18:41 → 3W 20:16 → 4W 02-14 05:31
PROVIDERS: Emergency Medicine; Nurse Practitioner Family; ADMIT Hospitalist; ATTEND Hospitalist
DX: I50.33 Acute on chronic diastolic (congestive) heart failure (principal); J18.9 Pneumonia, unspecified organism; J96.01 Acute respiratory failure with hypoxia; I48.91 Unspecified atrial fibrillation; Z87.891 Personal history of nicotine dependence; J06.9 Acute upper respiratory infection, unspecified; G20 Parkinson's disease; G47.00 Insomnia, unspecified; K59.00 Constipation, unspecified; Z79.899 Other long term (current) drug therapy; Z90.49 Acquired absence of other specified parts of digestive tract; Z88.2 Allergy status to sulfonamides; Z20.828 Contact with and (suspected) exposure to other viral communicable diseases
CPT/HCPCS: 10040; 10879

== ENCOUNTER → 2020-02-22 | Outpatient (CLI) | payer OTHER ==
[~2020-02-22] MED LIST changes: +CEFUROXIME500 MG PO
== END ==
LOC: SJCVCIMAG 06:32
PROVIDERS: ATTEND Internal Medicine
DX: I08.8 Other rheumatic multiple valve diseases (principal); R94.31 Abnormal electrocardiogram [ECG] [EKG]; R00.1 Bradycardia, unspecified; I50.32 Chronic diastolic (congestive) heart failure; E78.5 Hyperlipidemia, unspecified; I48.3 Typical atrial flutter; Z79.01 Long term (current) use of anticoagulants; Z79.899 Other long term (current) drug therapy; Z87.891 Personal history of nicotine dependence

== ENCOUNTER → 2020-04-19 | Outpatient (CLI) | payer OTHER | LOC: SJCVC 12:45 | PROVIDERS: ATTEND Internal Medicine | DX: R00.1 Bradycardia, unspecified (principal); I50.32 Chronic diastolic (congestive) heart failure; I48.3 Typical atrial flutter; I95.1 Orthostatic hypotension; E78.5 Hyperlipidemia, unspecified; G45.9 Transient cerebral ischemic attack, unspecified; Z79.01 Long term (current) use of anticoagulants; Z87.891 Personal history of nicotine dependence; Z79.899 Other long term (current) drug therapy; Z88.2 Allergy status to sulfonamides ==

== ENCOUNTER → 2020-08-29 | Outpatient (CLI) | payer OTHER | LOC: SJCVC 10:26 | PROVIDERS: ATTEND Internal Medicine | DX: R94.31 Abnormal electrocardiogram [ECG] [EKG] (principal); R00.1 Bradycardia, unspecified; I45.10 Unspecified right bundle-branch block; I50.32 Chronic diastolic (congestive) heart failure; I42.8 Other cardiomyopathies; I48.3 Typical atrial flutter; E78.5 Hyperlipidemia, unspecified; G20 Parkinson's disease; Z90.49 Acquired absence of other specified parts of digestive tract; Z98.890 Other specified postprocedural states; Z88.2 Allergy status to sulfonamides; Z79.01 Long term (current) use of anticoagulants; Z79.899 Other long term (current) drug therapy; Z87.891 Personal history of nicotine dependence; Z86.73 Personal history of transient ischemic attack (TIA), and cerebral infarction without residual deficits ==

== ENCOUNTER 2021-02-24 17:27 | Inpatient (IN) | payer OTHER ==
[~2021-02-24] VITALS: Ht 175.3 cm; Wt 83.5 kg
[2021-02-24 17:46] VITALS: BP 163/66
[2021-02-24 18:37] LABS: BASOPHILS 0.4 % (0.0-2.0); EOSINOPHILS 2.6 % (0.0-3.0); LYMPHOCYTES 7.3 % (24.0-44.0); MCH 29.9 pg (26.0-34.0); MCHC 32.4 g/dL (28.0-37.0); MCV 92.4 fL (80.0-100.0); MONOCYTES 6.8 % (1.0-8.0); PLATELET COUNT 189 thou/uL (150-400); POLYS 82.9 % (36.0-66.0); RDW 14.2 % (10.5-14.5); WBC 4.9 thou/uL (4.0-11.0)
--- NOTE | 2021-02-24 18:40 | NUR ---
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
[2021-02-24 18:46] LABS: CALCIUM 8.6 mg/dL (8.5-10.1); CREATININE 1.2 mg/dL (0.7-1.3); POTASSIUM 5.4 mmol/L (3.5-5.1)
[2021-02-24 19:48] VITALS: BP 166/65
[2021-02-24 20:49] VITALS: BP 160/66
--- NOTE | 2021-02-24 22:39 | NUR ---
ADMISSION COMPLETED. PT IS ALERT AND ORIENTED. MODOC BUT HAS AMIE TRAN. DENIES PAIN. HE IS ON ROOM AIR SATTING AT >94%. USES URINAL, CALLS APPROPRIATELY. WITH TREMORS SECONDARY TO PARKINSONS. GIVEN MEDS WHOLE IN PUDDING WITH SUPERVISION-HE SWALLOWED OKAY, I ALSO GAVE HIM THE TURKEY SANDWICH BEAUSE HE REQUESTED- HE ATE CAREFULLY, NO INSTANCES OF ASPIRATION. I INFORMED HIM HE WILL NEED SUPERVISION WITH INTAKE BUT SWALLOW EVAL HAS BEEN ORDERED.LOW GRADE FEVER.1 + EDEMA TO BLE, SCDS IN PLACE. CALL LIGHT WITHIN REACH.
[2021-02-25] MEDS ORDERED: CARBIDOPA-LEVO1 EAC5 PO (02:42)
[2021-02-25 03:35] VITALS: BP 170/78
[2021-02-25 04:48] LABS: HEMATOCRIT 35.2 % (42.0-52.0); HEMOGLOBIN 11.6 gm/dL (14.0-18.0); MCH 29.9 pg (26.0-34.0); MCHC 32.9 g/dL (28.0-37.0); MCV 90.7 fL (80.0-100.0); RBC 3.88 mil/uL (4.50-6.00); RDW 14.1 % (10.5-14.5); WBC 2.8 thou/uL (4.0-11.0)
[2021-02-25 04:56] LABS: CALCIUM 8.5 mg/dL (8.5-10.1); CREATININE 1.3 mg/dL (0.7-1.3); POTASSIUM 5.2 mmol/L (3.5-5.1)
[2021-02-25 07:51] VITALS: BP 166/78
--- NOTE | 2021-02-25 09:10 | NUR ---
ASSUMED PT CARE THIS AM. PT IS ALERT & ORIENTED X4. PT HAS IV SITE ON LAC 20 GAUGE RUNNING ANTIBIOTICS. PT USES URINAL. PT STATED THAT HE USES WALKER AND CANE AT HOME. PT IS ON TELE MONITOR ON. PT IS ON ROOM AIR. NO C/O PAIN, NAUSEA AND VOMTING. PT ABLE TO SWALLOW MEDICATION WHOLE WITHOUT DIFFICULTIES. EDUCATED TO ELEVATE HOB WHEN EATING AND EAT SMALL FREQUENT BITES. PT TOLERATED DIET AND MEDICATION WELL. WILL CONTINUE TO MONITOR PT. FOLLOW POC.
[2021-02-25 12:30] VITALS: BP 137/68
[2021-02-25 15:32] VITALS: BP 146/61
[2021-02-25 19:34] VITALS: BP 146/83
--- NOTE | 2021-02-26 04:01 | NUR ---
RECEIVED CARE OF THIS PATIENT AT 1900. PATIENT ALERT AND ORIENTED X4. PATIENT IS IMPULSIVE AND NEEDY. WANTS FOOD, EXTRA DOSES OF LEVO/DOPA. WANTS UP IN CHAIR THEN RIGHT BACK IN BED THEN UP AGAIN. HAS MAJOR TREMORS. C/O PAIN. MED GIVEN. HAS NOT SLEPT THIS SHIFT.
[2021-02-26 04:16] VITALS: BP 184/96
--- NOTE | 2021-02-26 07:27 | EKG ---
[address] [address] ELECTROCARDIOGRAM REPORT Name: DALE CARVAJAL Room #: 444-P ADM IN M.R.#: [id number] Admission: 02/24/21 Attend Phys: Sree Barahona MD Discharge: Date of : 37 Report #: [id number] [facility] ED Test Date: 2021-02-24 Test Time: 18:32:27 Pat Name: DALE CARVAJAL Department: Room: 444 Gender: M Vacuum Repairer: ALTAGRACIA : [id number] Requested By: Catracho Kohler Order Number: [id number] MD: Petey Macias Measurements Intervals Mona Rate: 63 P: 73 DC: 172 QRS: 33 QRSD: 112 T: 49 QT: 453 QTc: 464 Interpretive Statements Sinus rhythm Borderline intraventricular conduction delay Abnormal R-wave progression, late transition Borderline ST depression, lateral leads Compared to ECG 01/17/2018 18:28:21 ST (T wave) deviation now present Atrial flutter no longer present Electronically Signed On 02-26-2021 7:26:50 CDT by Petey Macias [email or web address] <ELECTRONICALLY SIGNED> By: Petey Macias MD, FACC 02/26/21 0726 31 31 Petey Macias MD, [facility] /EPI
[2021-02-26 08:10] VITALS: BP 142/62
--- NOTE | 2021-02-26 08:44 | NUR ---
Jesus visited with don at bedside, intro to cm and dcp. Prior to hospital he lives at home with his son and daughter. no steps into the home, then all on the main level, there is about 13 steps to basement. has a cane and rollator if needed. He manages his own medication but his son help out. Not been able to drive in last few months. hh in the past, and would have them again. Will not and prefer not to go to rehab, would like to go home per jose. PCP dr can coates. No anticipated needs, possible hh. Will cont following as needed for dc needs.
[2021-02-26] MEDS ORDERED: PEPCID20 MG PO (15:05)
[2021-02-26] MEDS ORDERED: PULMICORT0.5 MG/21 INH (15:05)
[2021-02-26] MEDS ORDERED: PROAIR HFA8.5 GM INH (15:05)
[2021-02-26] MEDS ORDERED: CEFUROXIME500 MG PO (15:05)
--- NOTE | 2021-02-26 15:11 | 2DMMODE ---
[facility] [place] [address] 2 D/M-MODE ECHOCARDIOGRAM Name: DALE CARVAJAL AMALIA Room #: 444-P ADM IN M.R.#: [id number] Admission: 02/24/21 Attend Phys: Art Duke MD Discharge: Date of : 37 Report #: [id number] THIS REPORT FOR: cc: Scott Grimaldo MD, David A. MD Lundgren, Craig H. MD [facility] ~ APPROVED REPORT Study performed: 02/26/2021 11:42:40 EXAM: Comprehensive 2D, Doppler, and color-flow Echocardiogram Patient Location: Bedside Room #: 444 Status: routine BSA: 1.99 HR: 62 bpm BP: 142/62 mmHg Rhythm: NSR Other Information Study Quality: Good Indications Congestive Heart Failure COPD Dyspnea 2D Dimensions RVDd: 40.95 mm IVSd: 10.65 (7-11mm) LVOT Diam: 24.30 (18-24mm) LVDd: 56.86 mm PWd: 11.47 (7-11mm) Ascending Ao: 28.14 (22-36mm) LVDs: 43.86 (25-40mm) Left Atrium: 41.25 (27-40mm) Aortic Root: 28.99 mm IVC: 22.00 mm Volumes Left Atrial Volume (Systole) Single Plane 4CH: 89.16 mL Single Plane 2CH: 96.47 mL LA ESV Index: 55.00 mL/m2 Aortic Valve AoV Peak Max.: 1.47 m/s AO Peak Gr.: 8.59 mmHg LVOT Max P.[address] [facility] [address] [place] [address] 2 D/M-MODE ECHOCARDIOGRAM Name: DALE CARVAJAL Room #: 444-P [facility] IN ..#: [id number] Admission: 02/24/21 Attend Phys: Art Duke MD Discharge: Date of : 37 Report #: [id number] LVOT Max V: 0.95 m/s ADRIÁN Vmax: 3.01 cm2 Mitral Valve E/A Ratio: 2.8 MV Decel. Time: 171.67 ms MV E Max Max.: 1.14 m/s MV A Max.: 0.40 m/s MV PHT: 49.78 ms IVRT: 96.89 ms Pulmonary Valve PV Peak Max.: 1.07 m/s PV Peak Gr.: 4.57 mmHg Pulmonary Vein P Vein S: 0.28 m/s P Vein A: 0.26 m/s P Vein D: 0.48 m/s P Vein A Dur.: 143.0 msec P Vein S/D Ratio: 0.58 Tricuspid Valve TR Peak Max.: 3.91 m/s TR Peak Gr.: 61.06 mmHg PA Pressure: 71.00 mmHg Left Ventricle Left ventricle is at the upper limits of normal. There is normal LV segmental wall motion. There is normal left ventricular wall thickness. The left ventricular systolic function is normal. The left ventricular ejection fraction is within the normal range. LVEF is 55%. Severe diastolic dysfunction Right Ventricle Right ventricle is at the upper limits of normal. The right ventricular systolic function is normal. Atria Left atrium is dilated. Right atrium is dilated. Aortic Valve The aortic valve is normal in structure. No aortic regurgitation is present. There is no aortic valvular stenosis. Mitral Valve The mitral valve is normal in structure. Mild mitral regurgitation. No evidence of mitral valve stenosis. [facility] [address] [place] [address] 2 D/M-MODE ECHOCARDIOGRAM Name: DALE CARVAJAL Room #: 444-P ADM IN .R.#: [id number] Admission: 02/24/21 Attend Phys: Art Duke MD Discharge: Date of : 37 Report #: [id number] Tricuspid Valve The tricuspid valve is normal in structure. There is mild tricuspid regurgitation. Estimated PAP 70 mmHg. There is severe pulmonary hypertension. Pulmonic Valve The pulmonary valve is normal in structure. There is no pulmonic valvular regurgitation. Great Vessels The aortic root is normal in size. IVC is dilated and collapses <50% with inspiration. Pericardium There is no pericardial effusion. <Conclusion> The left ventricular systolic function is normal. There is normal LV segmental wall motion. LVEF is 55%. Severe diastolic dysfunction Both atria are mildly dilated. The aortic valve is normal in structure. No aortic regurgitation or stenosis. The mitral valve is normal in structure. Mild mitral regurgitation. There is mild tricuspid regurgitation. Estimated pulmonary artery pressure of 70 mmHg. There is no pericardial effusion. <ELECTRONICALLY SIGNED> By: Stiven Chavis MD, FACC 02/26/211509 09 09 Stiven Chavis MD, FACC /INF
[2021-02-26 15:30] VITALS: BP 142/62
== END 2021-02-26 17:11 | disposition home health service (06) | DRG 193 ==
LOC: ER 17:27 → EROBS 19:58 → 4S 19:58
PROVIDERS: Emergency Medicine; Nurse Practitioner Family; ADMIT Hospitalist; ATTEND Hospitalist
DX: J18.9 Pneumonia, unspecified organism (principal); J96.00 Acute respiratory failure, unspecified whether with hypoxia or hypercapnia; I50.43 Acute on chronic combined systolic (congestive) and diastolic (congestive) heart failure; J44.1 Chronic obstructive pulmonary disease with (acute) exacerbation; I42.9 Cardiomyopathy, unspecified; J44.0 Chronic obstructive pulmonary disease with (acute) lower respiratory infection; G20 Parkinson's disease; N40.0 Benign prostatic hyperplasia without lower urinary tract symptoms; R53.81 Other malaise; E78.5 Hyperlipidemia, unspecified; R13.10 Dysphagia, unspecified; I27.20 Pulmonary hypertension, unspecified; I48.0 Paroxysmal atrial fibrillation; I48.91 Unspecified atrial fibrillation; I73.9 Peripheral vascular disease, unspecified; I50.9 Heart failure, unspecified; Z20.822 Contact with and (suspected) exposure to COVID-19; Z90.49 Acquired absence of other specified parts of digestive tract; Z85.828 Personal history of other malignant neoplasm of skin; Z79.899 Other long term (current) drug therapy; Z79.01 Long term (current) use of anticoagulants; Z88.2 Allergy status to sulfonamides; Z87.891 Personal history of nicotine dependence; Z86.73 Personal history of transient ischemic attack (TIA), and cerebral infarction without residual deficits
CPT/HCPCS: 10100